=== PATIENT | male | born 1945 | race Hispanic/Latino ===

== ENCOUNTER → 2019-05-21 | Outpatient (CLI) | payer OTHER | END | disposition home or self-care (01) | LOC: RAH 08:44 | PROVIDERS: ATTEND Family Medicine | DX: Z13.6 Encounter for screening for cardiovascular disorders (principal); Z87.891 Personal history of nicotine dependence | CPT/HCPCS: 76775 ==

== ENCOUNTER → 2019-07-24 | Outpatient (CLI) | payer OTHER | END | disposition home or self-care (01) | LOC: RAH 08:28 | PROVIDERS: ATTEND Physical Medicine & Rehabilitation | DX: M47.26 Other spondylosis with radiculopathy, lumbar region (principal); M48.061 Spinal stenosis, lumbar region without neurogenic claudication; M43.16 Spondylolisthesis, lumbar region | CPT/HCPCS: 72148 ==

== ENCOUNTER → 2020-02-03 | Outpatient (CLI) | payer OTHER ==
[~2020-02-03] MED LIST: AMLO-258 PO; ATOR10TA69 PO; CHLO50TA PO; DUTA0.5C18 PO; INSU100V SQ; INSU300I SQ; KRIL1CAP29 PO; LOSA100T58 PO; MV-M1TAB20 PO; TAMS-1 PO
== END | disposition home or self-care (01) ==
LOC: SHCH 12:48
PROVIDERS: ATTEND Internal Medicine Cardiovascular Disease
DX: I10 Essential (primary) hypertension (principal)
CPT/HCPCS: 93306

== ENCOUNTER → 2020-02-17 | Outpatient (CLI) | payer OTHER | END | disposition home or self-care (01) | LOC: OIH 12:17 | PROVIDERS: ATTEND Internal Medicine Cardiovascular Disease | DX: Z13.6 Encounter for screening for cardiovascular disorders (principal) ==

== ENCOUNTER 2020-02-28 07:09 | Day surgery (SDC) | payer OTHER ==
[2020-02-25 10:38] LABS: BASOPHILS % (AUTO) 0.2 % (0.0-5.0); EOSINOPHILS % (AUTO) 3.6 % (0.0-8.0); HEMATOCRIT 39.2 % (42-54); LYMPHOCYTES % (AUTO) 19.5 % (21.0-51.0); MEAN CORPUSCULAR HEMOGLOBIN 32.3 pg (27.0-33.0); MEAN CORPUSCULAR HGB CONC 34.2 g/dL (32.0-36.0); MEAN CORPUSCULAR VOLUME 94.5 fL (79-99); MONOCYTES % (AUTO) 5.3 % (3.0-13.0); PLATELET COUNT (AUTO) 285 K/uL (130-400); RED BLOOD CELL COUNT(AUTO) 4.15 MIL/uL (4.50-6.20); RED CELL DISTRIBUTION WIDTH 12.6 % (11.0-15.5); WHITE BLOOD COUNT (AUTO) 8.1 K/uL (4.8-10.8)
[2020-02-25 10:53] LABS: CREATININE 1.5 mg/dL (0.5-1.5); POTASSIUM 3.3 mmol/L (3.5-5.1)
[2020-02-25 11:05] LABS: INR 0.92 (0.85-1.15); PARTIAL THROMBOPLASTIN TIME 28.2 SEC (26.3-35.5)
[2020-02-27 08:59] VITALS: BP 149/68
--- NOTE | 2020-02-27 13:25 | NUR ---
REPORT CALLED SHARAD CARLOS WITH DR HOWARD AND INFORMED HER OF K LEVEL AND NO ANTIBIOTIC ORDERED. RECEIVED NEW ORDERS. REPEAT BMP IN AM AND ANCEF 2 GM TOE LASTER
[~2020-02-28] VITALS: Ht 170.2 cm; Wt 96.0 kg
[2020-02-28] VITALS (12 sets, daily range): BP systolic 116–146; BP diastolic 55–71
[~2020-02-28 07:09] MED LIST changes: -AMLO-258 PO; +AMLO10TA7 PO; +CEFAZOLIN SODIUM 1 GM VIAL IVP SCH; +SODIUM CHLORIDE 0.9% 500ML 500 ML IV SCH
[2020-02-28] MEDS ORDERED: SODIUM CHLORIDE 0.9% 1000ML 1,000 ML IV ONE (07:37)
--- NOTE | 2020-02-28 07:40 | NUR ---
PREOP PT ARRIVED IN NO DISTRESS. PT ORIENTED TO ROOM AND CALL LIGHT WITHIN REACH. PT INSTRUCTED TO CALL FOR ASSISTANCE AND VOICED UNDERSTANDING
[2020-02-28 08:03] LABS: CREATININE 1.4 mg/dL (0.5-1.5); POTASSIUM 3.4 mmol/L (3.5-5.1)
--- NOTE | 2020-02-28 08:15 | NUR ---
REPORT CALLED SHARAD CARLOS FOR DR HOWARD AND INFORMED ON K LEVEL OF 3.4 NO NEW ORDERS GIVEN.
[2020-02-28] MEDS ORDERED: LIDOCAINE HCL 1% MDV 50ML VIAL ONE (08:49)
[2020-02-28] MEDS ORDERED: MEPERIDINE-PF 25 MG/ML SYG ONE ×2 (08:49→09:30)
[2020-02-28] MEDS ORDERED: CEFAZOLIN SODIUM 1 GM VIAL ONE (08:49)
[2020-02-28] MEDS ORDERED: MIDAZOLAM HCL 1 MG/ML 2ML VIAL ONE ×2 (08:49→09:30)
[2020-02-28] MEDS ORDERED: BUPIVACAINE/PF 0.25% 30ML VIAL IJ ONE (08:49)
--- NOTE | 2020-02-28 08:50 | NUR ---
POLISHER IMPLANT PT TAKEN TO POLISHER IMPLANT VIA STRETCHER. PT IN NO DISTRESS. PT TOOK CPAP MACHINE WITH HIM TO POLISHER IMPLANT
[2020-02-28] MEDS ORDERED: ACETAMINOPHEN-CODEINE 300/30MG TAB PO PRN (10:30)
--- NOTE | 2020-02-28 10:45 | NUR ---
POST OP RECEIVED PT POST PACEMAKER PLACEMENT. PT A/O IN NO DISTRESS WITH DRESSING TO LEFT CHEST WALL WITH SCANT BLOOD SHADOW STAIN NOTED AND WEARING SLING. WILL CONTINUE TO MONITOR PT. CALL LIGHT WITHIN REACH
--- NOTE | 2020-02-28 14:30 | NUR ---
kari monroy from [employer] here to reeval pt device. he notified dr santos everything good with pacemaker.
--- NOTE | 2020-02-28 15:30 | NUR ---
report report given to shital scott for continuation of care
--- NOTE | 2020-02-28 17:36 | NUR ---
RECEIVED REPORT FROM VERONIKA MCQUEEN. PT STABLE TO NO DISTRESS. DRESSING TO LUE IS D/I. NO BLEEDING OR HEMATOMA NOTED. PT HAS NO C/O PAIN. INSTRUCTIONS HAS ALREADY BEEN GIVE TO SPOUSE BY PHONE FROM VERONIKA MCQUEEN. PT DRESSED WITH ASSISTANCE, IV D/C, CATHETER INTACT, PT TAKEN OUT IN WHEELCHAIR WITH PERSONAL BELONGINGS AND BIOTRONIK DEVICE TO CAR. DRIVEN HOME BY SPOUSE AND DAUGHTER.
== END 2020-02-28 17:15 | disposition home or self-care (01) ==
LOC: DAH 07:09
PROVIDERS: ATTEND Internal Medicine Cardiovascular Disease
DX: I49.5 Sick sinus syndrome (principal); I44.2 Atrioventricular block, complete; I10 Essential (primary) hypertension; E11.9 Type 2 diabetes mellitus without complications; Z79.899 Other long term (current) drug therapy; Z79.01 Long term (current) use of anticoagulants
CPT/HCPCS: 33208; 36415 ×2; 71045; 80048 ×2; 82948 ×2; 85025; 85610; 85730; 93005; A4215; A4216; A4221; A4222; A4223 ×3; A4606; A4663; C1785; C1898 ×2; J0690; J2175 ×2; J2250 ×2; J3490 ×2; J7030 ×2; 99156; 99157

== ENCOUNTER → 2020-07-21 | Outpatient (CLI) | payer OTHER ==
[~2020-07-21] VITALS: Ht 167.6 cm; Wt 95.7 kg
[~2020-07-21] MED LIST changes: +AMLO-258 PO; -AMLO10TA7 PO; -CEFAZOLIN SODIUM 1 GM VIAL IVP SCH; +REGADENOSON 0.4 MG/5 ML PF SYG IVP SCH; -SODIUM CHLORIDE 0.9% 500ML 500 ML IV SCH
== END | disposition home or self-care (01) ==
LOC: SHCH 07:58
PROVIDERS: ATTEND Internal Medicine Cardiovascular Disease
DX: I25.10 Atherosclerotic heart disease of native coronary artery without angina pectoris (principal)
CPT/HCPCS: 78452; 93017; 96374; A9500 ×2; J2785

== ENCOUNTER 2020-12-18 07:02 | Emergency (ER) | payer MEDICARE, OTHER ==
[~2020-12-18 07:02] MED LIST changes: -DUTA0.5C18 PO; +DUTA0.5C37 PO; -REGADENOSON 0.4 MG/5 ML PF SYG IVP SCH
== END 2020-12-18 07:58 | disposition home or self-care (01) ==
LOC: EDH 07:02
DX: I10 Essential (primary) hypertension (principal); F41.9 Anxiety disorder, unspecified; E11.9 Type 2 diabetes mellitus without complications; Z87.891 Personal history of nicotine dependence; Z95.0 Presence of cardiac pacemaker
CPT/HCPCS: 93005

== ENCOUNTER → 2021-09-17 | Outpatient (CLI) | payer MEDICARE | END | disposition home or self-care (01) | LOC: RAH 11:30 | PROVIDERS: ATTEND Physician Assistant | DX: M17.11 Unilateral primary osteoarthritis, right knee (principal) | CPT/HCPCS: 73562 ==

== ENCOUNTER 2022-10-09 14:37 | Emergency (ER) | payer MEDICARE ==
[~2022-10-09] VITALS: Ht 170.2 cm; Wt 93.0 kg
[2022-10-09 14:58] LABS: BASOPHILS % (AUTO) 0.2 % (0.0-5.0); EOSINOPHILS % (AUTO) 2.2 % (0.0-8.0); HEMATOCRIT 38.2 % (42-54); LYMPHOCYTES % (AUTO) 18.5 % (21.0-51.0); MEAN CORPUSCULAR HEMOGLOBIN 32.3 pg (27.0-33.0); MEAN CORPUSCULAR HGB CONC 33.8 g/dL (32.0-36.0); MEAN CORPUSCULAR VOLUME 95.5 fL (79-99); MONOCYTES % (AUTO) 6.7 % (3.0-13.0); NEUTROPHILS % (AUTO) 71.9 % (40.0-77.0); PLATELET COUNT (AUTO) 272 K/uL (130-400); RED CELL DISTRIBUTION WIDTH 12.8 % (11.0-15.5); WHITE BLOOD COUNT (AUTO) 9.7 K/uL (4.8-10.8)
[2022-10-09 15:09] LABS: CREATININE 1.3 mg/dL (0.5-1.5); POTASSIUM 3.2 mmol/L (3.5-5.1)
[2022-10-09 15:12] LABS: APPEARANCE,URINE CLEAR (CLEAR); BILIRUBIN,URINE NEGATIVE (NEGATIVE); GLUCOSE, URINE (UA) NEGATIVE (NEGATIVE); KETONES,URINE NEGATIVE (NEGATIVE); LEUKOCYTE ESTERASE ,URINE NEGATIVE Leu/uL (NEGATIVE); NITRATE,URINE NEGATIVE (NEGATIVE); OCCULT BLOOD,URINE NEGATIVE (NEGATIVE); PROTEIN,URINE NEGATIVE (NEGATIVE); UROBILINOGEN,URINE 0.2 mg/dL (0.2-1.0)
[2022-10-09 15:16] LABS: ALBUMIN 3.6 g/dL (3.5-5.0); MAGNESIUM 1.8 mg/dL (1.80-2.40); TOTAL PROTEIN, SERUM 7.2 g/dL (6.0-8.3)
[2022-10-09 15:24] LABS: COLOR,URINE Light-Yellow (YELLOW)
[2022-10-09 15:30] LABS: B-TYPE NATRIURETIC PEPTIDE 52 pg/mL (0-100)
[2022-10-09] MEDS ORDERED: POTASSIUM BICARB/CIT AC 25 MEQ TABLET.EFF PO ONE ×2 (16:00→20:30)
[2022-10-09] MEDS ORDERED: 0.9% NACL 500ML IV.SOLN 500 ML IV SCH (20:00)
[2022-10-09] MEDS ORDERED: METOPROLOL SUCCINATE 25 MG TAB.SR.24H PO ONE (20:00)
[2022-10-09] MEDS ORDERED: METO25PO2 PO (20:10)
[2022-10-09 20:17] VITALS: BP 129/63
[2022-10-09] MEDS ORDERED: METOPROLOL SUCCINATE 50 MG TAB.SR.24H PO ONE (20:19)
== END 2022-10-09 20:39 | disposition home or self-care (01) ==
LOC: EDH 14:37
DX: R42 Dizziness and giddiness (principal); I49.3 Ventricular premature depolarization; E87.6 Hypokalemia; E11.9 Type 2 diabetes mellitus without complications; E78.00 Pure hypercholesterolemia, unspecified; I10 Essential (primary) hypertension; Z79.4 Long term (current) use of insulin; Z79.899 Other long term (current) drug therapy; Z95.0 Presence of cardiac pacemaker
CPT/HCPCS: 99285; 96360; 71045; 83735; 84484; 80053; 83880; 85025; 81003; 36415; 93005 ×2; J7040